=== PATIENT | female | born 1935 | race Caucasian/White ===

== ENCOUNTER 2020-05-20 21:55 | Emergency (ER) | payer MEDICARE, MEDICAID ==
[2020-05-20] MEDS ORDERED: traMADol 50 MG Tab PO ONE (21:56)
[2020-05-20] MEDS ORDERED: Acetaminophen 500 MG Tab PO ONE (22:06)
[2020-05-20] MEDS ORDERED: Ketorolac 30 MG/ML SDV IVPUSH ONE (22:07)
--- NOTE | 2020-05-20 22:14 | EDM.PDOC ---
ED HPI GENERAL MEDICAL PROBLEM - General Time Seen by Provider: 05/20/20 22:00 Source of Information: Reports: Patient History Limitations: Reports: No Limitations - History of Present Illness INITIAL COMMENTS - FREE TEXT/NARRATIVE: c/o R rib pain pt is a [employer], leaving chapel with other sisters, leaned over to pick something up and fell against a shelf on a pew for holding books in good health, lost balance uses walker on occasion, usually not took no pain meds at home, has had persistent pain much better with fentanyl 50 mcg IV by EMS says her R shoulder hurts altho actually indicates her ribs, inc'd pain with DB - Related Data Allergies Allergy/AdvReac Type Severity Reaction Status Date / Time cephalexin Allergy Rash Verified 05/20/20 22:33 clindamycin Allergy Diarrhea Verified 05/20/20 22:33 Home Meds: Home Meds Ibuprofen [Ibuprofen Ib] 200 mg PO Q6HR PRN 07/16/15 [History] Lisinopril 20 mg PO WITHDINNER 07/16/15 [History] Acetaminophen with Codeine [Tylenol with Codeine #3 Tablet] 1 tab PO Q4H PRN 03/22/16 [History] Lidocaine 5% [Lidoderm 5%] 1 patch TOP DAILY #7 patch 05/20/20 [Rx] traMADol HCl [Tramadol HCl] 100 mg PO Q6H PRN #12 tablet 05/20/20 [Rx] Past Medical History HEENT History: Reports: Impaired Vision Cardiovascular History: Reports: Hypertension Dermatologic History: Reports: Venous Stasis Dermatitis Other Dermatologic History: RIGHT FOOT ULCER ED ROS GENERAL - Review of Systems Review Of Systems: See Below Constitutional: Reports: No Symptoms HEENT: Reports: No Symptoms Respiratory: Reports: No Symptoms Cardiovascular: Reports: No Symptoms Endocrine: Reports: No Symptoms GI/Abdominal: Reports: No Symptoms : Reports: No Symptoms Musculoskeletal: Reports: Other (rib pain) Skin: Reports: No Symptoms Neurological: Reports: No Symptoms Psychiatric: Reports: No Symptoms Hematologic/Lymphatic: Reports: No Symptoms Immunologic: Reports: No Symptoms ED EXAM, GENERAL - Physical Exam Exam: See Below Exam Limited By: No Limitations General Appearance: Alert, WD/WN, Mild Distress, Other (alert, nonill) Eye Exam: Bilateral Eye: PERRL Head: Atraumatic, Normocephalic Neck: Normal Inspection, Supple, Non-Tender, Full Range of Motion. No: Lymphadenopathy (R), Lymphadenopathy (L) Respiratory/Chest: No Respiratory Distress, Lungs Clear, Normal Breath Sounds, No Accessory Muscle Use, Other (2+ tender at about ribs #6-7 at posterior axillary line, sits with some difficulty d/t inc'd pain with change of position, winces to palpation and deep breath, lungs CTA) Cardiovascular: Regular Rate, Rhythm, No Murmur GI/Abdominal: Soft, Non-Tender Back Exam: Normal Inspection Extremities: Normal Inspection Neurological: Alert, Oriented, CN II-XII Intact, Normal Cognition, No Motor/Sensory Deficits Psychiatric: Normal Affect, Normal Mood Skin Exam: Warm, Dry, Intact, Normal Color, No Rash Lymphatic: No Adenopathy Course - Vital Signs Last Recorded V/S: Last Vital Signs Temp 36.7 C 05/20/20 21:55 Pulse 71 05/20/20 21:55 Resp 18 05/20/20 21:55 BP 159/75 H 05/20/20 21:55 Pulse Ox 94 L 05/20/20 21:55 - Orders/Labs/Meds Orders: Active Orders 24 hr Category Date Time Status Ribs 2V w Chest Rt [CR] Stat Exams 05/20/20 22:07 Ordered Sodium Chloride 0.9% [Saline Flush] Med 05/20/20 22:54 Active 10 ml FLUSH ASDIRECTED PRN Medication Orders Sodium Chloride (Saline Flush) 10 ml FLUSH ASDIRECTED PRN PRN Reason: Keep Vein Open Last Admin: 05/20/20 22:54 Dose: 10 ml Documented by: Meds: Medications Generic Name Dose Route Start Last Admin Trade Name Freq PRN Reason Stop Dose Admin Sodium Chloride 10 ml 05/20/20 22:54 05/20/20 22:54 Saline Flush FLUSH 10 ml ASDIRECTED PRN Administration Keep Vein Open Discontinued Medications Generic Name Dose Route Start Last Admin Trade Name Freq PRN Reason Stop Dose Admin Acetaminophen 1,000 mg 05/20/20 22:06 05/20/20 22:21 Tylenol Extra Strength PO 05/20/20 22:07 1,000 mg ONETIME ONE Administration Ketorolac Tromethamine 15 mg 05/20/20 22:07 05/20/20 22:53 Toradol IVPUSH 05/20/20 22:08 15 mg ONETIME ONE Administration - Re-Assessments/Exams Free Text/Narrative Re-Assessment/Exam: 05/20/20 23:17 prelim ED read of XR show fx R 6 & 7 ribs with displacement of #6 by 10% and #7 by 100% posteriorly between midscapular and posterior axillary lines Departure - Departure Time of Disposition: 23:13 Disposition: Home, Self-Care 01 Condition: Good Clinical Impression: Multiple fractures of ribs of right side - Discharge Information *PRESCRIPTION DRUG MONITORING PROGRAM REVIEWED*: Not Applicable *COPY OF PRESCRIPTION DRUG MONITORING REPORT IN PATIENT HUSSAIN: Not Applicable Prescriptions: Lidocaine 5% [Lidoderm 5%] 1 patch TOP DAILY #7 patch traMADol HCl [Tramadol HCl] 100 mg PO Q6H PRN #12 tablet PRN Reason: Pain Instructions: Rib Fracture Additional Instructions: For pain, take acetaminophen 500 mg 2 tabs 4 times a day. For pain, take ibuprofen 200 mg 2 tabs 4 times a day. For pain, take tramadol 100 mg 1 tab every 6 hours as needed. For pain, use a lidocaine 5% patch over the fractured ribs (where it hurts most) for 12 hours out of every 24 hours. Use ice for 10 minutes every 2 hours for the first 2 days, then continue as needed. See Dr Quintero in 4-5 days for further evaluation and recommendations. Sepsis Event Note (ED) - Focused Exam Vital Signs: Vital Signs Temp Pulse Resp BP Pulse Ox 05/20/20 21:55 36.7 C 71 18 159/75 H 94 L - My Orders Last 24 Hours: My Active Orders 05/20/20 22:07 Ribs 2V w Chest Rt [CR] Stat 05/20/20 22:54 Sodium Chloride 0.9% [Saline Flush] 10 ml FLUSH ASDIRECTED PRN - Assessment/Plan Last 24 Hours: My Active Orders 05/20/20 22:07 Ribs 2V w Chest Rt [CR] Stat 05/20/20 22:54 Sodium Chloride 0.9% [Saline Flush] 10 ml FLUSH ASDIRECTED PRN
[2020-05-20 22:39] VITALS: BP 159/75; PULSE 71
[2020-05-20] MEDS ORDERED: Sodium Chloride 0.9% 10 ML Syringe FLUSH PRN (22:54)
--- NOTE | 2020-05-21 12:42 | CR ---
INDICATION: Fell 6 hours prior, struck right ribs 6-7 against pew. Pain posterior axillary line. RIGHT RIBS WITH CHEST: PA view of the chest with 5 views of the right ribs were obtained 05/20/20 - no comparison. No contusion, pneumothorax, infiltrate or effusion was identified. Somewhat diminished bone density may be present raising question of osteoporosis. 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 The heart appears slightly enlarged. The aorta is tortuous with calcification in the arch. The lungs appear to be somewhat hyperaerated. There is a hairline fracture at the 5th left rib posterolaterally, a slightly offset irregular, slightly oblique fracture at the 6th rib on the right posterolaterally and a more distracted offset fracture site at the 7th rib on the right posterolaterally. An undisplaced fracture may also be present at the 8th rib posterolaterally on the right. No other acute findings were suggested. IMPRESSION: 1. [place]sof fractures at the 5th, 6th, 7th and 8th right ribs posterolaterally. Offset is only noted at the 6th and 7th rib fracture sites, most prominent at the 7th with distraction also noted at the 7th (offset at the 7th rib fracture site is approximately 5.6 mm laterally of the distal fracture fragment with separation of the fracture fragments of approximately 4.2 mm.). 2. Probable COPD. 3. ASHD. 4. Rotoscoliosis thoracic spine. MTDD
== END 2020-05-21 | disposition home or self-care (01) ==
LOC: FB.ED 21:55
DX: S22.41XA Multiple fractures of ribs, right side, initial encounter for closed fracture (principal); I10 Essential (primary) hypertension; Z88.1 Allergy status to other antibiotic agents; Z79.899 Other long term (current) drug therapy; W20.8XXA Other cause of strike by thrown, projected or falling object, initial encounter
CPT/HCPCS: 71101; 96374; 99284; A9270; J1885; 99283

== ENCOUNTER 2022-03-18 20:51 | Emergency (ER) | payer MEDICAID, MEDICARE ==
[2022-03-18 22:18] LABS: CORONAVIRUS COVID-19 NAA POSITIVE (NEGATIVE)
[2022-03-19 00:58] VITALS: BP 150/83; PULSE 73
== END 2022-03-18 23:45 | disposition home or self-care (01) ==
LOC: FB.ED 20:51
DX: U07.1 COVID-19 (principal); J06.9 Acute upper respiratory infection, unspecified; I10 Essential (primary) hypertension; K21.9 Gastro-esophageal reflux disease without esophagitis; Z79.82 Long term (current) use of aspirin; Z79.899 Other long term (current) drug therapy
CPT/HCPCS: 0240U; 87651; 99283; 99281